=== PATIENT | male | born 1970 | race Caucasian/White ===

== ENCOUNTER → 2018-01-11 11:56 | Day surgery (SDC) | payer OTHER ==
[~2018-01-11 11:56] MED LIST: Buffered Lidocaine 0.9% SYRIN* 5 ML/SYR SYRINGE INTRADERM ONE; Dexamethasone TAB* 4 MG ONE; Dexamethasone TAB* 4 MG PO ONE; DiMENhydriNATE IV* 50 MG/ML VIAL IV PUSH PRN; Famotidine IV* 10 MG/ML 2 ML (20 mg) IV ONE; Famotidine IV* 10 MG/ML 2 ML (20 mg) ONE; KETAMINE HCL* 50 MG/ML 10 ML VIAL ONE; Midazolam* 1 MG/ML 5 ML VIAL (5 MG) ONE; Morphine VIAL* 10 MG/ML 1 ML VIAL ONE; Morphine VIAL* 4 MG/ML VIAL (1 ml vial) IV PRN; Naloxone* 0.4 MG/ML 1 ML VIAL IV PRN; Ondansetron ODT TAB* 4 MG ONE; Ondansetron TAB* 4 MG PO ONE; PROCHLORPERAZINE INJ 5 MG/ML 2 ML VIAL IV PRN; Scopolamine 1.5 mg* PATCH TRANSDERM PRN; Scopolamine PATCH Remove* 1 NOTE MISC PATCH OFF ONE; ceFAZolin 1 GM in Dextrose (*) 1 GM/50 ML BAG IVPB ONE; ceFAZolin 2 GM PREMIX in ORs 2 GM/50 ML BAG IVPB ONE; fentaNYL* 50 MCG/ML 2 ML VIAL (100 MCG VIAL) IV PRN; fentaNYL* 50 MCG/ML 2 ML VIAL (100 MCG VIAL) ONE; oxyCODONE/Acetamin 5/325 MG* TAB PO PRN
[2018-01-11 12:38] VITALS: BP 116/77
== END | disposition home or self-care (01) ==
LOC: OR 11:56
PROVIDERS: ATTEND Orthopaedic Surgery
DX: Z53.9 Procedure and treatment not carried out, unspecified reason (principal)
CPT/HCPCS: A9270-GY; J0690; J2250; J2270; J3010; J8540

== ENCOUNTER → 2018-01-18 08:17 | Day surgery (SDC) | payer OTHER ==
[~2018-01-18 08:17] MED LIST changes: +Acetaminophen TAB* 325 MG PO PRN; +Desflurane* 240 ML INH ONE; +Dexamethasone IV* 4 MG/ML 1 ML (4 MG) IV SLOW PU ONE; +Dexamethasone IV* 4 MG/ML 1 ML (4 MG) ONE; -Dexamethasone TAB* 4 MG ONE; -Dexamethasone TAB* 4 MG PO ONE; +HYDROcodone/ACETAMIN 5-325 MG* 1 TAB ONE; +HYDROcodone/ACETAMIN 5-325 MG* 1 TAB PO PRN; -KETAMINE HCL* 50 MG/ML 10 ML VIAL ONE; +Ketorolac INJ* 30 MG/ML 1 ML VIAL IV PRN; +Ketorolac INJ* 30 MG/ML 1 ML VIAL ONE; +Lidocaine 1%* 5 ML VIAL ONE; +Lidocaine 2% PF * 5 ML VIAL ONE; +Midazolam* 1 MG/ML 2 ML VIAL (2 MG) ONE; -Midazolam* 1 MG/ML 5 ML VIAL (5 MG) ONE; -Morphine VIAL* 10 MG/ML 1 ML VIAL ONE; +Neomycin/Polym/Bacit TOP OINT* 15 GM ONE; +Ondansetron INJ* 2 MG/ML VIAL ONE; -Ondansetron ODT TAB* 4 MG ONE; -Ondansetron TAB* 4 MG PO ONE; +PROCHLORPERAZINE INJ 5 MG/ML 2 ML VIAL ONE; +Propofol* 10 MG/ML 20 ML BTL IV PUSH ONE; +ROPIVACAINE 5 MG/ML 30 ML BTL (0.5%) ONE; +Rocuronium* 10 MG/ML VIAL ONE; +Ropivacaine* 2 MG/ML 20 ML VIAL (0.2%) ONE; -Scopolamine 1.5 mg* PATCH TRANSDERM PRN; -Scopolamine PATCH Remove* 1 NOTE MISC PATCH OFF ONE; -fentaNYL* 50 MCG/ML 2 ML VIAL (100 MCG VIAL) IV PRN; -oxyCODONE/Acetamin 5/325 MG* TAB PO PRN
[2018-01-18] MEDS: fentaNYL* 50 MCG/ML 2 ML VIAL (100 MCG VIAL) IV PRN ×3 (13:27→13:55)
[2018-01-18 15:19] VITALS: BP 126/63
== END | disposition home or self-care (01) ==
LOC: OR 08:17
PROVIDERS: ATTEND Orthopaedic Surgery
DX: S46.011A Strain of muscle(s) and tendon(s) of the rotator cuff of right shoulder, initial encounter (principal); M75.41 Impingement syndrome of right shoulder; M75.21 Bicipital tendinitis, right shoulder; K21.9 Gastro-esophageal reflux disease without esophagitis; X50.0XXA Overexertion from strenuous movement or load, initial encounter; Y93.89 Activity, other specified; Y92.89 Other specified places as the place of occurrence of the external cause; Y99.0 Civilian activity done for income or pay
CPT/HCPCS: A9270-GY; C1713; C1776; J0690; J0780; J1100; J1885; J2250; J2405; J2704; J2795; J3010